=== PATIENT | female | born 1945 | race Caucasian/White ===

== ENCOUNTER 2023-07-24 09:02 | Outpatient (AMB) | payer MEDICARE, SELFPAY ==
--- NOTE | 2023-07-24 09:05 | MHC.OFFVIS ---
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 She is here with her granddaughter Ariana who is also her historian. She reports they are here for memory issues that have worsened over the last 3 years. Allergies No Known Allergies Allergy (Verified 07/24/23 09:12) Medication List - Last Reconciled 07/24/23 by Darlene Cooley MD amlodipine 10 mg PO DAILY aspirin 81 mg PO DAILY atorvastatin 40 mg PO DAILY carboxymethylcellulose sodium 0.5% (Refresh Tears) 1 drp ophthalmic (eye) BID carvedilol 25 mg PO BID cholecalciferol (vitamin D3) 125 mcg PO DAILY donepezil 23 mg PO BEDTIME fenofibrate 54 mg PO DAILY gabapentin 300 mg PO BID hydralazine 10 mg PO BID losartan 100 mg PO DAILY memantine 10 mg PO BID metformin 500 mg PO BID nitroglycerin 0.4 mg sublingual Q5M PRN valacyclovir (Valtrex) 500 mg PO BID HPI HPI Comments History of Present Illness Details 77y/o female with dementia comes for further management.she recently moved from [place], [place] to [place], [place] to stay with her Grand daughter. Her memory issues started 3 - 4 years ago and now it is advanced where she does not recognize her close family members sometimes. she needs help with all her ADLs and has behavior issues like irritability. she sleeps early and is more confused towards the end of the day The hallucinations are intermittent. 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 [facility] .she has radha knee replacement and sometimes has difficulty. At times she can be aggressive. she had fdc services and she was very upset. [facility] Medical History (Updated 07/24/23 @ 10:05 by Darlene Cooley MD) Alzheimer's dementia Arthritis Diabetic neuropathy HTN (hypertension) Diabetes Dementia with behavioral disturbance Surgical History (Updated 07/24/23 @ 09:12 by Tracy Adkins CMA) History of knee surgery Family History (Updated 07/24/23 @ 09:26 by Trcay Adkins CMA) Mother No problems noted. Sister No problems noted. Social History (Updated 07/24/23 @ 09:13 by Tracy Adkins CMA) Alcohol intake: never Patient Tobacco Use Status: Never used Tobacco Review of Systems Neuro Reports behavioral changes, Reports confusion and Reports memory loss Psych Reports anxiety, Reports behavioral changes, Reports confusion and Reports memory loss Physical Exam Vital Signs: Last Vital Signs Pulse 69 07/24/23 09:26 Resp 17 07/24/23 09:26 BP 122/72 07/24/23 09:26 Pulse Ox 98 07/24/23 09:26 Oxygen Delivery Method Room Air 07/24/23 09:26 BMI result Body Mass Index 28.4 Const General: cooperative, healthy appearing, comfortable, no acute distress and confusion Nutritional Appearance: overweight Orientation/consciousness: confusion Neuro General: moves all extremities, no focal motor deficits and confusion Cranial nerves: Yes Facial sensation intact/muscles of mastication intact, Yes Bilaterally intact EOM present, Yes Nystagmus not present, Yes Normal facial strength present and Yes Midline tongue present Cognition (Neuro): abnormal cognition Gait exam (Neuro): Normal gait present Motor exam (neuro): 5/5 motor strength present throughout and Normal motor muscle tone present throughout Deep tendon reflexes (DTR's): Right triceps reflex intensity grade: 1+, Left triceps reflex intensity grade: 1+, Rt Biceps (C5, C6): 1+, Left biceps reflex intensity grade: 1+, Right brachioradialis reflex intensity grade: 1+, Left brachioradialis reflex intensity grade: 1+, Right patellar reflex intensity grade: 1+ and Left patellar reflex intensity grade: 1+ Coordination: [id number] test normal Orientation Where are we (state) (county) (town or city) (hospital) (floor)?: hospital/clinic Registration Name of 3 unrelated objects clearly and slowly, then ask patient to repeat all 3 of them. (1st repeat determines score. Make sure they can repeat all three): object 1, object 2 and object 3 Attention & Calculation (CHOOSE ONE) Spell WORLD backwards (DLROW): 2 letters Recall Ask patient to repeat the 3 items from question #3.: object 1 and object 2 Language Show patient a wristwatch & ask what it is. Repeat for pencil.: watch and pencil Ask the patient to repeat the phrase 'No ifs, ands, or buts' after you.: correct Ask the patient to 'take a piece of paper with their right hand' 'fold paper in half' 'place paper on floor': take paper in right hand and fold paper in half Score Score: 13 Assessment & Plan Assessment & Plan (1) Dementia with behavioral disturbance: Code(s): F03.918 - Unspecified dementia, unspecified severity, with other behavioral disturbance (2) Alzheimer's dementia: Code(s): G30.9 - Alzheimer's disease, unspecified; F02.80 - Dementia in other diseases classified elsewhere, unspecified severity, without behavioral disturbance, psychotic disturbance, mood disturbance, and anxiety Plan Continue aricept 23mg qd Memantine 10mg bid Refer to [facility] for mental health social worker, [employer] [employer] services Orders: [facility]errals [facility] Referral F02.80 - Dementia in other diseases classified elsewhere, unspecified severity, without behavioral disturbance, psychotic disturbance, mood disturbance, and anxiety, G30.9 - Alzheimer's disease, unspecified Coding Level of Care Code New Pt Level 4 (16486) Diagnoses Dementia with behavioral disturbance F03.918 Alzheimer's dementia G30.9; F02.80
[2023-07-24 09:26] VITALS: BP 122/72; PULSE 69; RESP 17; O2SAT 98; BMI 28.4
== END 2023-07-24 10:12 | disposition home or self-care (01) ==
PROVIDERS: Visit Provider Psychiatry & Neurology Neurology
DX: F03.918 Unspecified dementia, unspecified severity, with other behavioral disturbance (principal); G30.9 Alzheimer's disease, unspecified; F02.80 Dementia in other diseases classified elsewhere, unspecified severity, without behavioral disturbance, psychotic disturbance, mood disturbance, and anxiety
CPT/HCPCS: 99204

== ENCOUNTER → 2023-07-24 09:02 | Outpatient (BNVA) | payer MEDICARE, SELFPAY | PROVIDERS: Visit Provider Psychiatry & Neurology Neurology ==

== ENCOUNTER 2024-01-27 09:48 | Outpatient (AMB) | payer MEDICARE, SELFPAY ==
--- NOTE | 2024-01-27 09:50 | A.OFFVIS_ITS ---
Vital Signs 01/27/24 09:51 Height 5 ft 1 in Weight 155 lb 6 oz BMI 29.4 BP 120/62 Blood Pressure Location Rt brachial Position Sitting Respiration 16 Pulse 62 Pulse Source Pulse Oximeter Pulse Oximetry (%) 98 Oxygen Delivery Method Room Air Intake Visit Reasons: 6 mo f/u Alzheimres/Dementia-conf Intake Note: Pt presents for a 6 month follow up for Alzheimer's. 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 .she recently moved from [place], [place] to [place], [place] to stay with her Grand daughter. Her memory issues started 3 - 4 years ago and now it is advanced where she does not recognize her close family members sometimes. she needs help with all her ADLs and has behavior issues like irritability. she sleeps early and is more confused towards the end of the day The hallucinations are intermittent. 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 [facility] .she has radha knee replacement and sometimes has difficulty. At times she can be aggressive. she had prison services and she was very upset. [facility] Medical History Alzheimer's dementia Arthritis Diabetic neuropathy HTN (hypertension) Diabetes Dementia with behavioral disturbance Surgical History History of knee surgery Family History Mother No problems noted. Sister No problems noted. Social History Alcohol intake: never Patient Tobacco Use Status: Never used Tobacco Review of Systems Neuro Reports confusion Psych Reports confusion Physical Exam Vital Signs: Last Vital Signs Pulse 62 01/27/24 09:51 Resp 16 01/27/24 09:51 BP 120/62 01/27/24 09:51 Pulse Ox 98 01/27/24 09:51 Oxygen Delivery Method Room Air 01/27/24 09:51 BMI result Body Mass Index 29.4 Const General: cooperative, healthy appearing, comfortable, no acute distress and confusion Nutritional Appearance: overweight Orientation/consciousness: confusion Neuro Other: MOCA- 02/26 c/w Advanced Dementia General: moves all extremities, no focal motor deficits and confusion Cranial nerves: Yes Facial sensation intact/muscles of mastication intact, Yes Bilaterally intact EOM present, Yes Nystagmus not present, Yes Normal facial strength present and Yes Midline tongue present Cognition (Neuro): abnormal cognition Gait exam (Neuro): Normal gait present Motor exam (neuro): 5/5 motor strength present throughout and Normal motor muscle tone present throughout Coordination: [id number] test normal Assessment & Plan Assessment & Plan (1) Dementia with behavioral disturbance: Code(s): F03.918 - Unspecified dementia, unspecified severity, with other behavioral disturbance Category: Medical (2) Alzheimer's dementia: Code(s): G30.9 - Alzheimer's disease, unspecified; F02.80 - Dementia in other diseases classified elsewhere, unspecified severity, without behavioral disturbance, psychotic disturbance, mood disturbance, and anxiety Category: Medical Plan Continue aricept 23mg qd Memantine 10mg bid F/u with PCP Coding Level of Care Code Est Pt Level 4 (10841) Diagnoses Dementia with behavioral disturbance F03.918 Alzheimer's dementia G30.9; F02.80
[2024-01-27 09:51] VITALS: BP 120/62; PULSE 62; RESP 16; O2SAT 98; BMI 29.4
== END 2024-01-27 10:17 | disposition home or self-care (01) ==
PROVIDERS: PCP Internal Medicine; Visit Provider Psychiatry & Neurology Neurology
DX: F03.918 Unspecified dementia, unspecified severity, with other behavioral disturbance (principal); G30.9 Alzheimer's disease, unspecified; F02.80 Dementia in other diseases classified elsewhere, unspecified severity, without behavioral disturbance, psychotic disturbance, mood disturbance, and anxiety
CPT/HCPCS: 99214

== ENCOUNTER → 2024-01-27 09:48 | Outpatient (BNVA) | payer MEDICARE, SELFPAY | PROVIDERS: PCP Internal Medicine; Visit Provider Psychiatry & Neurology Neurology | DX: G30.9 Alzheimer's disease, unspecified (principal); F02.818 Dementia in other diseases classified elsewhere, unspecified severity, with other behavioral disturbance; Z79.899 Other long term (current) drug therapy | CPT/HCPCS: 99212 ==